=== PATIENT | female | born 1965 | race Caucasian/White ===

== ENCOUNTER → 2017-05-17 | Outpatient (CLI) | payer OTHER ==
[~2017-05-17] MED LIST: AMLODIPINE BESY10 MG PO; TOPROL XL25 MG PO
[2017-05-17 09:00] LABS: HEMOGLOBIN 15.4 g/dL (10.0-15.0); MCH 33.7 pg (27.0-34.0); MCV 96.3 fl (83.0-98.0); MPV 8.8 fl (9.4-12.4); PLATELET COUNT 304 K/uL (150-450); RBC 4.57 M/uL (3.50-5.50); RDW-CV 13.2 % (11.9-14.6); WBC 11.4 K/uL (4.0-11.0)
[2017-05-17 09:17] LABS: ALBUMIN 3.7 gm/dL (3.5-5.0); ANION GAP 11.1 (10.0-19.0); CALCIUM 9.2 mg/dL (8.5-10.5); CREATININE 0.8 mg/dL (0.5-1.1); POTASSIUM 4.1 mMol/L (3.7-5.1); TOTAL BILIRUBIN 0.9 mg/dL (0.0-1.5); TOTAL PROTEIN 7.7 g/dL (6.0-8.4)
[2017-05-17 09:34] LABS: ABSOLUTE NEUTROPHIL CT (ANC) 8.2 K/uL (1.8-7.8); BANDED NEUTROPHIL # 0.3 K/uL (0.0-0.1); BANDED NEUTROPHILS % 3 %; LYMPHOCYTE # 1.8 K/uL (0.8-4.0); LYMPHOCYTE % 16 %; MONOCYTE # 0.7 K/uL (0.0-1.0); SEGMENTED NEUTROPHIL # 7.9 K/uL (1.8-7.8); SEGMENTED NEUTROPHIL % 69 %
== END | disposition disaster alternative care site (69) ==
LOC: GLAB 08:11 → GRAD 09:30
PROVIDERS: Surgery Vascular Surgery
DX: Z03.89 Encounter for observation for other suspected diseases and conditions ruled out (principal); I70.8 Atherosclerosis of other arteries; R91.1 Solitary pulmonary nodule
CPT/HCPCS: Q9967

== ENCOUNTER → 2017-06-04 | Outpatient (CLI) | payer OTHER ==
--- NOTE | ~2017-06-04 | PUL ---
PATIENT'S NAME: ZAKIA [facility]LEZ [facility] AGE: 52 Y [address] ROOM: [place] [address] LOCATION: [facility] ADMIT DATE: 06/04/2017 Pulmonary DISCHARGE DATE: FAMILY PHYSICIAN: Ja Mccartney MD ATTENDING PHYSICIAN: SERGE ARRIETA NAME OF PROCEDURE: Pulmonary Function Test DATE OF PROCEDURE: June 04, 2017 TECH: TESHA Lucas REASON FOR EXAM: Pulmonary nodule PROCEDURES PERFORMED: Spirometry with bronchodilator assessment. Measurement of maximum voluntary ventilation. Measurement of diffusing capacity. Measurement of lung volumes. RESULTS: Spirometry pre bronchodilator FVC was 3.66 liters, 84% of predicted; post bronchodilator FVC was 3.86 liters, 88% of predicted. The pre bronchodilator FEV1 was 2.43 liters, 71% of predicted; post-bronchodilator FEV1 was 2.62 liters, 76% of predicted. FEV1/FVC was 66%, 83% of predicted. Maximum voluntary ventilation was 69 liters/minute, 91% of predicted. This data did not change significantly after administration of bronchodilator. Total lung capacity was 6.49 liters, 102% of predicted. Functional residual capacity was 3.77 liters, 99% of predicted. Residual volume was 2.38 liters, 102% of predicted. Diffusion capacity not adjusted for hemoglobin was 88% of predicted. Flow volume curve was normal. IMPRESSION: The above data and corresponding flow volume curve are most compatible with mild airflow obstruction, with normal lung volumes, without any evidence of hyperexpansion or air trapping, and normal gas exchange. MD MIKAYLA BENDER/jason /[id number] dtt: 06/10/17 1730 BERNY MEENAKSHI dtd: 06/07/17 1532
== END ==
LOC: GKIC 11:13
DX: Z12.2 Encounter for screening for malignant neoplasm of respiratory organs (principal); R91.1 Solitary pulmonary nodule
CPT/HCPCS: A9552

== ENCOUNTER → 2017-06-15 | Outpatient (CLI) | payer OTHER ==
--- NOTE | ~2017-06-15 | ESTC ---
Cardiac Perfusion Imaging Demographics Patient Name AGUSTIN ZAKIA Mosqueda Gender Female Patient Number [id number] Race Visit Number [id number] Ethnicity Corporate ID Room Number Accession Number [id number] Height 71 inches Date of 1965 Weight 131 pounds MD Arthur Morton Date of study 06/15/2017 Physician Zuly Middleton Supervising /ELLEN POLK Technologist Twin Middleton Ordering Physician Zuly Middleton mathematical technician Stress ECG Reading Zuly Nurse Daily Mosqueda Physician Emi Angel Medications Reviewed with Patient prior to Procedure. Procedure Admit Source:Other. Procedure Type: Nuclear Stress Test:Pharmacological, Lexiscan Procedure Start time: 06/15/2017 08:20 Indications: Hypertension and pre surgical clearance. Risk Factors The patient risk factors include:Current/Recent(w/in 1 year) tobacco use and family history of premature CAD. Conclusions Summary Perfusion Images: The overall quality of the study is fair, due to gastrointestinal tracer uptake. Left ventricular cavity is noted to be normal on the stress and rest studies. The right ventricle is not visualized and cannot be assessed. Stress SPECT images and Rest SPECT images demonstrate homogenous tracer distribution throughout the myocardium except for a decrease uptake in the area involving the inferior wall consistent with soft tissue attenuation. Gated SPECT imaging reveals normal myocardial thickening and wall motion. The left ventricular ejection fraction was calculated to be 65%. Impression ECG portion of stress test is clinically negative for ischemia by diagnostic criteria. Pt demonstrated hypertensive response to stress. Due to severe hypertension with exercise, stress test was changed to Lexiscan. Myocardial perfusion imaging is mildly abnormal. The inferior wall matched defect is consistent with soft tissue attenuation. Overall left ventricular systolic function was normal without regional wall motion abnormalities. Stress Protocols Resting ECG Sinus rhythm at 85 bpm Pre-stress physical exam: Patient assessed by Dr Zamorano prior to testing. Predicted HR: 168 bpm ECG Findings No ECG changes suggestive of ischemia. Arrhythmias No rhythm abnormality. Symptoms None with exercise Stress Interpretation Pt had hypertensive response to exercise with BP of 240/103 with stage 1 John and hence it was stopped. Changed to Lexiscan. ECG portion of stress test is negative for ischemia with regadenoson by diagnostic criteria. Dose of amlodipine was increased to 5 mg daily Imaging Results Applied corrections - Motion correction applied High risk findings Summed scores - Summed stress score: 9 - Summed rest score: 6 - Summed difference score: 3 Stress ejection Ejection fraction:65 % EDV :97 ml ESV :34 ml Stroke volume :63 ml LV mass :130 gr Imaging Protocols Rest Stress Isotope:Tc99m Sestamibi IV Isotope: Tc99m Sestamibi IV Isotope dose:11.2 mCi Isotope dose:33.2 mCi Date:06/15/2017 07:15 Date:06/15/2017 09:34 Technique: SPECT Technique: Gated Supine SPECT Supine Scan Time:45-60 minutes post Scan Time:45-60 minutes post injection injection Procedure Medications - Regadenoson (Lexiscan) 0.4 mg IV over 10-15 sec. I.V. 0.4 mg. - amlodipine P.O. 5 mg. Medications administered per verbal order and read back to physician prior to administration. Medical History Admission Data Admission date: 06/15/2017 Admission Time: 06:44 Hospital Status: Outpatient. Signatures dtt: EMI ZAMORANO dtd: 06/15/17819 Physician Self Edit
== END | disposition disaster alternative care site (69) ==
LOC: GRAD 06:44
DX: Z01.810 Encounter for preprocedural cardiovascular examination (principal); I10 Essential (primary) hypertension; I73.9 Peripheral vascular disease, unspecified; F17.200 Nicotine dependence, unspecified, uncomplicated; Z82.49 Family history of ischemic heart disease and other diseases of the circulatory system
CPT/HCPCS: A9500; J2785

== ENCOUNTER 2017-06-21 10:46 | Observation (INO) | payer OTHER ==
[~2017-06-21] VITALS: Ht 180.3 cm; Wt 59.0 kg
--- NOTE | ~2017-06-21 | ECHO ---
Transthoracic Echocardiography Report (TTE) Demographics Patient Name AGUSTINZAKIA Lafleur Date of Study 06/21/2017 Patient Number [id number] Visit Number [id number] Date of 1965 Room Number G6325 Gender Female Number Age 52 year(s) Referring Bib Fuentes Wired Sweatband Cutter Graham Gilliam RVT Physician MD Aleksander Parekh MD Physician Interpreting Aleksander Draper Rubber Goods Finisher Physician MD Supervising Ordering Aleksander Draper MD/GAYP Physician Nurse Stress Lead Qa Analyst Conclusions Summary Limited echo to evaluate for LV systolic function. Normal LV size and systolic function. The estimated left ventricular ejection fraction is 65-70%. Trace MR. No AI. No regional wall motion abnormalities noted. Procedure Type of Study TTE procedure:Echo Limited w/o Contrast, Echo with Contrast. Procedure Date Date: 06/21/2017 Start: 02:33 PM Study Location: ER Technical Quality: Adequate visualization Indications:Chest pain. Appropriate Use Criteria: 9 Patient Status: STAT HR: 90 bpm BP: 167/72 mmHg Doppler Measurements AV Peak Velocity: 1.58 m/s AV Peak Gradient: 9.99 mmHg Findings Pericardial Effusion Epicardial fat pad noted. No pericardial effusion. Contractility Score LV regional wall motion:(0-Non visualized 1-Normal 2-Hypokinesis 3-Akinesis 4-Dyskinesis 5-Aneurysm) Signature dtt: MAYCOL LAINEZ dtd: 06/21/17 1435 Physician Self Edit
--- NOTE | ~2017-06-21 | ER ---
PATIENT'S NAME: ZAKIA VELEZ [facility] AGE: 52 Y [address] ROOM: [place] [address] LOCATION: [facility] ADMIT DATE: 06/21/2017 ER/Outpatient Report DISCHARGE DATE: FAMILY PHYSICIAN: Ja Mccartney MD ATTENDING PHYSICIAN: Ja Mccartney CHIEF COMPLAINT: Palpitations and racing heart. HISTORY OF PRESENT ILLNESS: Ms. Velez notes that she has had heaviness in her chest with palpitations since the onset of these symptoms 5 hours prior to arrival. Symptoms have been constant. She has also been a little shaky with this. She denies any prior cardiac history. She has a history of high blood pressure and a spot on her lung. She recently reports echo, stress test, and PET scan for evaluation of this mass. She is a smoker. She has not had any chest pain with this. Just the heaviness in the middle of her chest. It does not radiate. She has not done anything for this. PAST MEDICAL HISTORY: Documented on the record and reviewed by me. SOCIAL HISTORY: Documented on the record and reviewed by me. MEDICATIONS: Documented on the record and reviewed by me. ALLERGIES: DOCUMENTED ON THE RECORD AND REVIEWED BY ME. REVIEW OF SYSTEMS: All systems reviewed and negative except as noted in the HPI. PHYSICAL EXAMINATION: VITAL SIGNS: Blood pressure 198/86, pulse is 119, respiratory rate 20, temperature 98.0, and SpO2 is 96% on room air. Pain is rated as 0/10. GENERAL: An age appropriate female, in no obvious pain or distress, upright on exam table. NEUROLOGIC: Awake and alert. GCS 15. No focal deficits. No asymmetry. HEENT: Normocephalic and atraumatic. Eyes are PERRL. Oropharynx is clear. NECK: Supple. Trachea is midline. CHEST: Heart is tachycardic and regular. No murmurs. Lungs are clear to auscultation bilaterally with no rhonchi, wheezes, or rales. ABDOMEN: Soft, nontender, and nondistended. No rebound or guarding. PATIENT'S NAME: ZAKIA VELEZ [facility] AGE: 52 Y [address] ROOM: [place] [address] LOCATION: [facility]U ADMIT DATE: 06/21/2017 ER/Outpatient Report DISCHARGE DATE: FAMILY PHYSICIAN: Ja Mccartney MD ATTENDING PHYSICIAN: Ja Mccartney BACK: Normal to inspection and palpation. EXTREMITIES: Warm, well formed, well perfused with no obvious abnormalities. SKIN: Clean, dry, and intact. LABORATORY DATA AND X-RAYS: Chest x-ray is unremarkable per my review. EKG shows sinus tachycardia at a rate of 110, otherwise normal intervals and axis. Maybe some lateral ST- segment depression. Repeat EKG with improved rate of [address]-segment depression. Labs were obtained as above. CBC: White count is 13.7, hemoglobin is 15.9, and platelets are 299. INR is less than 1. CMS with a sodium of 129, potassium is 3.7, chloride is 94, CO2 is 24, and glucose is 233. No significant abnormalities of the renal function or LFTs. Magnesium is 2.1, CK is 118, CK-MB is 1.6, and troponin I 0.090. Repeat cardiac enzymes reveals a CK-MB of 1.8 and troponin of 0.106. D-dimer 0.62. CT scan of the chest is without pulmonary embolism. IMPRESSION: 1. Palpitations. 2. Elevated troponin. 3. Mild hyponatremia. 4. Mild hypochloremia. 5. Known lung nodule. EMERGENCY DEPARTMENT COURSE: The patient was seen and evaluated as above. Serial enzymes are increasing. Dr. Bonny Armijo, Cardiology, has seen the patient and recommends formal rule out an echo. These were obtained. Dr. Mccartney, the patient's primary care, will admit this patient for further evaluation and treatment of her palpitations with elevated troponin. The patient was given aspirin in the emergency department. No initiation of anticoagulation at this time after discussion with Dr. Bonny Armijo. All questions were answered and the patient was admitted in stable condition. MD SKYLER DIAMOND/lonnie /[id number] d: t: 06/21/17 2225, OUTPATIENT REPORT
--- NOTE | ~2017-06-21 | CON ---
PATIENT'S NAME: AGUSTIN [facility] AGE: 52 Y [address] ROOM: [facility] [place] [address] LOCATION: [facility]PCU ADMIT DATE: 06/21/2017 Consultation DISCHARGE DATE: FAMILY PHYSICIAN: Ja Mccartney MD ATTENDING PHYSICIAN: Ja Mccartney DATE OF CONSULTATION: 06/21/2017 REFERRING PHYSICIAN: MAYCOL LAINEZ MD NEPHROLOGY CONSULTATION REQUESTING PHYSICIAN: . REASON FOR CONSULTATION: Hyponatremia. HISTORY OF PRESENT ILLNESS: The patient is a 52-year-old, white female, who was admitted to the hospital with uncontrolled hypertension. Incidentally, she was also noted to have an 11 mm right lung nodule. Sodium is 129. I noticed that even in May 17, 2017, the patient had sodium of 134. She has not had any labs drawn in the past, so we do not know whether she had hyponatremia in the past. She reports that her weight does fluctuate. She has 15 pack years history of smoking. There is no family history of malignancy. I have been asked to see her because of hyponatremia. Patient denies any symptoms of dizziness and lightheadedness, change in mental status. Her outpatient medication does not include any SSRI or thiazide diuretics. She is not on any narcotics. ALLERGIES: NO KNOWN DRUG ALLERGIES. MEDICATIONS: Aspirin 81 mg a day and amlodipine 10 mg a day. SOCIAL HISTORY: The patient lives in [place], [place]. She works at [employer]. She has [id number] of smoking. FAMILY HISTORY: No family history of malignancy. PAST MEDICAL HISTORY: Hypertension, stenosis of the right brachiocephalic artery. PATIENT'S NAME: AGUSTIN [facility] AGE: 52 Y [address] ROOM: [address] [place] [address] LOCATION: [facility]PCU ADMIT DATE: 06/21/2017 Consultation DISCHARGE DATE: FAMILY PHYSICIAN: Ja Mccartney MD ATTENDING PHYSICIAN: Ja Mccartney REVIEW OF SYSTEMS: GENERAL: She denies any fever, chills, or rigors. She denies any dizziness or lightheadedness. HEENT: Denies any sore throat or sinus congestion. CARDIOVASCULAR: Denies any chest pain, dyspnea on exertion. RESPIRATORY: Denies any shortness of breath, cough, or wheezing. GI: Denies abdominal pain, nausea, or vomiting. GENITOURINARY: Dysuria, frequency. MUSCULOSKELETAL: Denies any joint pain or swelling. SKIN: Denies any rash or pruritus. Denies any allergies or hay fever. LYMPHATIC/HEMATOLOGIC: Denies any lymph node enlargement or easy bruising. Denies any heat or cold intolerance. PSYCHIATRIC: Denies any sadness, crying spells, poor concentration, or panic attack. PHYSICAL EXAMINATION: GENERAL APPEARANCE: A 52-year-old, lean and thin white female lying in the hospital bed, not in acute distress. VITAL SIGNS: Temperature 98, pulse 98, systolic blood pressure 177, diastolic 77, respiratory rate of 18. HEENT: Head normocephalic. Pupils are round and equal. Normal eyelid and conjunctivae. Oral cavity clear. Moist mucosa. NECK: Trachea is midline. No thyromegaly. No bruit. HEART: Sounds are audible in all the area without any gallop or murmur. There is no pericardial rub. Pulses, asymmetric pulses in between 2 radials. ABDOMEN: Soft, nontender. Cannot palpate any liver or spleen. EXTREMITIES: She has no clubbing or cyanosis. SKIN: No sign of vasculitis. LYMPHATIC: Did not examine the lymphatic. NEUROLOGIC: She is alert and grossly nonfocal. HIGHER PSYCHIATRIC FUNCTION: She has normal speech and memory. LABORATORY DATA: Blood work shows sodium 129, potassium 3.7, chloride 94, bicarbonate 24, BUN 15, creatinine of 1.0, calcium 9.0. ASSESSMENT: 1. Hyponatremia, etiology is unclear, but since the patient is euvolemic, there is a possibility that she may have syndrome of inappropriate antidiuretic hormone secretion. 2. Uncontrolled hypertension. 3. 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 4. Tobaccoism. PLAN: PATIENT'S NAME: ZAKIA VELEZ [facility] AGE: 52 Y [address] ROOM: [address] [place], [place] [address] [facility] AD[facility] DATE: 06/21/2017 Consultation DISCHARGE DATE: FAMILY PHYSICIAN: Ja Mccartney MD ATTENDING PHYSICIAN: Ja Mccartney Patient is asymptomatic at this time with sodium level of 129. She did admit that she drinks more than 3 liters of liquid in 24 hours. I am going to put her on free water restriction of 2 L for now. Check a TSH, check a urine osmolality, and urine sodium. I agree that most likely reason for her hyponatremia could be related to SIADH, probably from her lung nodule. She does have history of tobaccoism. I will check her renal function very closely. I would like to thank Dr. Mccartney for allowing me to participate in this patient's care. M IMTAIZ MD BUBBA GIORDANO/lonnie /[id number] CC: Ja Mccartney MD d: t: 06/21/17 2325, CONSULTATION REPORT
--- NOTE | ~2017-06-21 | HP ---
PATIENT'S NAME: AGUSTIN [facility] AGE: 52 Y [address] ROOM: [place] [address] LOCATION: [facility]PCU ADMIT DATE: 06/21/2017 History & Physical DISCHARGE DATE: PHYSICIAN: Ja Mccartney MD ATTENDING PHYSICIAN: Ja Mccartney DATE OF SERVICE: CHIEF COMPLAINT: Palpitations. HISTORY OF PRESENT ILLNESS: The patient is a 52-year-old female, who started experiencing palpitations this morning that lasted approximately a couple of hours. The patient was brought into the emergency department, where she was found to be tachycardic and had an elevated troponin and D-dimer. CT scan for PE was negative. The patient was also noted to be hypernatremic at 129. The patient currently denies any chest pain, shortness of breath, fevers, chills, nausea, vomiting, abdominal pain, or headaches. PAST MEDICAL HISTORY: 1. Hypertension. 2. Tobacco abuse. PAST SURGICAL HISTORY: 1. . 2. Cyst removal. ALLERGIES: NO KNOWN MEDICAL ALLERGIES. MEDICATIONS: Please see list. SOCIAL HISTORY: The patient smokes tobacco every day and occasional alcohol, and denies illicit drug use. FAMILY HISTORY: Noncontributory. REVIEW OF SYSTEMS: A complete review of systems obtained, pertinent positives and negatives as mentioned in the HPI. PATIENT'S NAME: AGUSTIN [facility] AGE: 52 Y [address] ROOM: [place] [address] [facility] ADMIT DATE: 06/21/2017 History & Physical DISCHARGE DATE: FAMILY PHYSICIAN: Ja Mccartney MD ATTENDING PHYSICIAN: Ja Mccartney OBJECTIVE: VITAL SIGNS: Temp 98.0, pulse 101, respiratory rate 16, and blood pressure 177/77. GENERAL: The patient is alert and oriented, appears in no acute distress. Mood euthymic. HEENT: Head: Normocephalic, atraumatic. Eyes: Conjunctivae clear. No scleral icterus. Mouth: Oropharynx grossly moist and pink. No lesion or exudates. NECK: Supple. HEART: Tachycardic. No rubs, murmurs, or gallops. LUNGS: Decreased breath sounds throughout, but no crackles or wheezes. ABDOMEN: Bowel sounds are present. Nontender. EXTREMITIES: No cyanosis, clubbing, or edema. VASCULAR: Pulses +2 and equal. SKIN: No rash or lesions. LYMPHATICS: No lymphadenopathy. NEUROLOGIC: Cranial 2 through 12 grossly intact. LABORATORY DATA: Shows an elevated troponin of 0.9 along with elevated D-dimer 0.62, sodium of 129. ASSESSMENT: 1. Tachycardia with palpitations, elevated troponin. 2. Tobacco abuse. 3. Hypertension. 4. Hyponatremia. PLAN: For her tachycardia, palpitations, and elevated troponin, we will have Cardiology continued to follow. We will place her on telemetry. We will do fluid restriction and monitor. As for hypertension, we will continue to monitor and treat accordingly, and as for her sodium, we will have Nephrology follow. MD CAROLYN ALDANA/lonnie /[id number] D: T: [id number] HISTORY & PHYSICAL
--- NOTE | ~2017-06-21 | CON ---
PATIENT'S NAME: AGUSTIN [facility] AGE: 52 Y [address] ROOM: [place] [address] LOCATION: GPCU ADMIT DATE: 06/21/2017 Consultation DISCHARGE DATE: FAMILY PHYSICIAN: Ja Mccartney MD ATTENDING PHYSICIAN: Ja Mccartney DATE OF CONSULTATION: 06/21/2017 REFERRING PHYSICIAN: MAYCOL LAINEZ MD REASON FOR CONSULTATION: Increased troponin. CHIEF COMPLAINT: Palpitations. HISTORY OF THE ILLNESS: The patient is a very pleasant 52-year-old female who reports she has been having poorly controlled hypertension in the recent past, she was started on amlodipine 10 mg daily and her blood pressure did improve. However, it has been poorly controlled in the past few days. She reports she went to the shower this morning and started having palpitations that lasted for about an hour and a half. She reports feeling dizzy at that time. She really did not have any chest discomfort, pressure, heaviness, no arm pain or jaw pain. She did not have any shortness of breath, nausea, or vomiting with the palpitations. The palpitations resolved on their own. She ultimately ended up coming to the emergency room for evaluation. She was noted to be in sinus tachycardia with heart rate around 110 range. She was quite comfortable during interview. She did not have any complaints of chest discomfort, shortness of breath, or palpitations at that time. She does not have any fever, chills, nausea, vomiting, diarrhea, constipation. No stroke-like symptoms, changes in her strength, speech, or sensation. No sputum production. No diarrhea. No fever, chills, or skin rash. REVIEW OF SYSTEMS: All review of systems discussed with the patient. Pertinent positives and negatives mentioned in the history of present illness. PAST MEDICAL HISTORY: Hypertension. MEDICATIONS: She is on amlodipine 10 mg daily. PATIENT'S NAME: AGUSTIN [facility] AGE: 52 Y [address] ROOM: [place] [address] LOCATION: GPCU ADMIT DATE: 06/21/2017 Consultation DISCHARGE DATE: FAMILY PHYSICIAN: Ja Mccartney MD ATTENDING PHYSICIAN: Ja Mccartney PAST SURGICAL HISTORY: Surgery on her left wrist as well as many years ago. FAMILY HISTORY: No premature coronary artery disease or sudden cardiac deaths. ALLERGIES: NO KNOWN DRUG ALLERGIES. SOCIAL HISTORY: The patient smokes. No illicit drug abuse or abuse. She does have an extensive smoking history. PHYSICAL EXAMINATION: VITAL SIGNS: Blood pressure 160/80, respirations are 14. She is afebrile. Her heart rate is in the 90s, tele sinus. HEAD: Atraumatic and normocephalic. GENERAL: The patient is alert and orient, not in any apparent distress. SKIN: Warm and dry. HEENT: Mucous membranes moist. Nasal turbinates are normal. Sclerae white. No xanthelasmas. HEART: S1 and S2. Regular rate and rhythm. No murmurs, gallops, or rubs. LUNGS: Clear to auscultation bilaterally. EXTREMITIES: No significant lower extremity edema. NEURO: Grossly normal. Able to move all extremities against gravity. Gait normal. ABDOMEN: Soft. Bowel sounds positive. LABORATORY DATA: Sodium 129, potassium 3.7, chloride 94, CO2 24, glucose 233, BUN 15, creatinine 1, albumin 3.5, globulin 4.3, alkaline phosphatase 129, AST 30, ALT 25, eGFR 65, magnesium 2.1. Troponin initial 0.09, increased to 0.106. CPK 118 then 108. CK-MB 1.6 and 1.8. H and H are 15.9 and 44.2, platelets are 299. WBC 13.7. CT of the chest was done for PE protocol. She did not have any PE. She did however have an indeterminate right apical lung nodule that is about 11 mm. Echocardiogram: Normal LV and RV size and systolic function. No significant valvular disease. Stress test: There is no evidence of any ischemia. She had hypertensive response to exercise. ECG portion of the stress was negative for ischemia. She did attempt a John protocol. However, within stage I, she was significantly hypertensive and so stress test was switched to Lexiscan. PATIENT'S NAME: ZAKIA SRIVASTAVA [facility] AGE: 52 Y [address] ROOM: [address] [address] [facility] AD[facility] DATE: 06/21/2017 Consultation DISCHARGE DATE: FAMILY PHYSICIAN: Ja Mccartney MD ATTENDING PHYSICIAN: Goldfish,Aj L PFTs, most compatible with mild airflow obstruction. IMPRESSION: 1. Mild nonspecific elevation in troponin. 2. Palpitations with associated symptoms of dizziness. 3. History of tobacco use. Counseled against smoking. 4. Indeterminate nodule in the right lung, awaiting biopsy. 5. Hyponatremia. 6. Essential hypertension, poorly controlled. PLAN: At this time, unfortunately, we do not have any rhythm strips or EKG during the episode of palpitations. I will send her home on an event monitor for a month to see if she has recurrence to document exactly what arrhythmias she has. Since her troponin is elevated, recommend to admit to the hospital and get serial enzymes. However, I am not concerned this is secondary to an acute coronary syndrome. She really does not have any chest discomfort. The CPK and CK-MB is also normal. There are no regional wall motion abnormalities on echocardiogram. This is likely secondary to her hypertension or perhaps her underlying lung issue may be. Recommend workup and treatment for her hyponatremia. We will defer to primary care physician. The patient had a recent stress test without any significant ischemia. I do not think a cardiac cath is indicated at this time. However, we will get serial enzymes and ECGs to ensure they were stable. The patient also advised to let us know if she has any chest discomfort. Thank you very much Dr. Mccartney for allowing us to participate in the care of Ms. Srivastava. MAYCOL LAINEZ MD AT/miriaml /[id number] d: 06/21/17 2214 t: 06/24/17 0836, CONSULTATION REPORT
[2017-06-21 11:16] LABS: BASOPHIL # 0.1 K/uL (0.0-0.2); BASOPHIL % 0.5 %; EOSINOPHIL % 0.1 %; HEMATOCRIT 44.2 % (33.0-46.0); HEMOGLOBIN 15.9 g/dL (10.0-15.0); IMMATURE GRANULOCYTE # 0.1 K/uL (0.0-0.3); IMMATURE GRANULOCYTE % 0.6 %; LYMPHOCYTE # 1.7 K/uL (0.8-4.0); LYMPHOCYTE % 12.4 %; MCH 33.8 pg (27.0-34.0); MCV 93.8 fl (83.0-98.0); MONOCYTE # 0.5 K/uL (0.0-1.0); MONOCYTE % 3.4 %; MPV 8.6 fl (9.4-12.4); NEUTROPHIL # (ANC) 11.4 K/uL (1.8-7.8); NRBC % 0 /100WBC (0-0.00); PLATELET COUNT 299 K/uL (150-450); RBC 4.71 M/uL (3.50-5.50); RDW-CV 12.8 % (11.9-14.6); WBC 13.7 K/uL (4.0-11.0)
[2017-06-21 11:25] LABS: INR - (THERAPEUTIC) 0.93 (0.92-1.07); PROTIME 9.8 SECONDS (9.8-11.4); PTT 36 SECONDS (25-32)
[2017-06-21 11:38] LABS: ALBUMIN 3.5 gm/dL (3.5-5.0); ANION GAP 14.7 (10.0-19.0); MAGNESIUM 2.1 mg/dL (1.8-2.6); POTASSIUM 3.7 mMol/L (3.7-5.1); TOTAL PROTEIN 7.8 g/dL (6.0-8.4)
[2017-06-21] MEDS ORDERED: AMLODIPINE BESY10 MG PO (16:15)
[2017-06-22 05:52] LABS: ALBUMIN 3.2 gm/dL (3.5-5.0); ANION GAP 10.2 (10.0-19.0); BLOOD UREA NITROGEN 11 mg/dL (6-24); CALCIUM 8.7 mg/dL (8.5-10.5); CHLORIDE 100 mMol/L (96-110); CO2 28 mMol/L (22-32); CREATININE 0.7 mg/dL (0.5-1.1); PHOSPHORUS 3.1 mg/dL (2.5-4.9); POTASSIUM 3.2 mMol/L (3.7-5.1); SODIUM 135 mMol/L (135-145)
[2017-06-22] MEDS ORDERED: TOPROL XL25 MG PO (09:11)
== END 2017-06-22 09:40 | disposition disaster alternative care site (69) ==
LOC: GMED 10:46 → GPCU 14:22
PROVIDERS: Emergency Medicine; Internal Medicine Interventional Cardiology; Internal Medicine Nephrology; ADMIT Family Medicine
DX: R00.2 Palpitations (principal); I10 Essential (primary) hypertension; F17.210 Nicotine dependence, cigarettes, uncomplicated; E87.1 Hypo-osmolality and hyponatremia; R91.1 Solitary pulmonary nodule; Z98.890 Other specified postprocedural states; Z79.82 Long term (current) use of aspirin; R79.89 Other specified abnormal findings of blood chemistry
CPT/HCPCS: Q9967